=== PATIENT | female | born 1955 | race Caucasian/White ===

== ENCOUNTER 2017-04-07 06:24 | Day surgery (SDC) | payer OTHER ==
[~2017-04-07] VITALS: Ht 152.4 cm; Wt 90.3 kg
[~2017-04-07 06:24] MED LIST: AMBI12.5 PO; AMIT75TA6 PO; DEPA250T PO; MAXA10TA2 PO; SYNT25TA PO; TIZA2TAB PO
[2017-04-07] MEDS ORDERED: IOHEXOL 350 MG/ML 50 ML BTL (for Cath Lab) OTHER ONE (06:25)
[2017-04-07 06:45] VITALS: BP 121/51; PULSE 91; RESP 16; O2SAT 97
[2017-04-07] MEDS ORDERED: MONT10TA4 PO (06:54)
[2017-04-07] MEDS ORDERED: ASPI-516 CHEW (06:54)
[2017-04-07] MEDS ORDERED: ASPIRIN 81 MG CHEW TAB PO ONE (07:15)
[2017-04-07 07:17] LABS: AUTOMATED NEUTROPHIL # 3.6 TH/MM3 (1.8-7.7); BASOPHIL # 0.1 TH/MM3 (0-0.2); BASOPHIL % 1.3 % (0.0-2.0); EOSINOPHIL # 0.2 TH/MM3 (0-0.4); EOSINOPHIL % 3.2 % (0.0-4.0); HEMATOCRIT 46.1 % (35.0-46.0); HEMOGLOBIN 15.8 GM/DL (11.6-15.3); LYMPH % 38.7 % (9.0-44.0); LYMPHOCYTE # 2.8 TH/MM3 (1.0-4.8); MEAN CELL VOLUME 89.9 FL (80.0-100.0); MEAN CORPUSCULAR HEMOGLOBIN 30.9 PG (27.0-34.0); MEAN CORPUSCULAR HGB CONC 34.3 % (32.0-36.0); MEAN PLATELET VOLUME 8.5 FL (7.0-11.0); MONO % 7.7 % (0.0-8.0); MONOCYTE # 0.6 TH/MM3 (0-0.9); NEUT % 49.1 % (16.0-70.0); PLATELET COUNT 282 TH/MM3 (150-450); RED BLOOD COUNT 5.13 MIL/MM3 (4.00-5.30); RED CELL DISTRIBUTION WIDTH 13.3 % (11.6-17.2); WHITE BLOOD COUNT 7.3 TH/MM3 (4.0-11.0)
[2017-04-07 07:24] LABS: PROTHROMBIN TIME - PATIENT 9.7 SEC (9.8-11.6)
[2017-04-07 07:30] LABS: BICARBONATE 27.1 MEQ/L (21.0-32.0); CALCIUM 8.7 MG/DL (8.5-10.1); CREATININE 0.82 MG/DL (0.50-1.00)
[2017-04-07] MEDS ORDERED: HEPARIN-NS/PF INJ 1,000 ML ONE (08:05)
[2017-04-07] MEDS ORDERED: MIDAZOLAM HCL 2 MG/2 ML VIAL ONE (08:17)
--- NOTE | 2017-04-07 09:22 | CATHPROC ---
Mogreet HIS Report Study Information Study Number Admission Scheduled Start Study Start [id number] Apr 07 2017 6:24AM 04/07/2017 Apr 07 2017 7:58AM Study Type [place] Service Left/Possible PCI Cardiac Catheterization Admit Source Facility Department Other [facility] - Compliance Director Physician and Clinical Staff Initial Leoncio Parnell Key Sandercarolyn Fine RN, Wilmer Recorder Tova Hale ,RT(R) Recorder Joceline Langley,BRENT TECH2 Scrub Wallace Ta,RT(R) Procedures Performed Procedure Location (Site) Vessel Name Coronary Angiograms LCA Left Coronary Coronary Angiograms RCA Right Coronary LV Gram-hand inj. LV LV Ventricle Equipment Time Alum Plant Supervisor Description Size Mfg Part Number Used/Scraped CATHETER, FR5 SWAN JOSE ALBERTO 08:08 Zaizher.im FR 5 [id number] *[id number] Used MONITOR TRANSDUCER, TRUWAVE [id number] 08:08 RODGERS SYED * Used W/STOCKCOCK *[id number] [id number] *[id number] [id number] *[id number] 08:08 MEDLINE INDUSTRIES PACK, CCL CUSTOM * Used *[id number] 08:08 Nexstim PACER PEN, SKIN DUAL W/ RULER * Used *[id number] 08:08 Jumbas MEDICAL SHEATH, FR5.5 PRELUDE 11CM FR 5.5 Used [id number] 08:08 [employer]umbas MEDICAL WIRE, 3MMJ .035 180CM 180CM Used *[id number] 08:08 NAMIC MANIFOLD, 4 PORT * Used *[id number] 08:08 NYCOMED OMNIPAQUE, 350 MG, 150ML 150ML [id number] Used [id number] 08:08 [place]ach MEDICAL BLANKET,WARM AIR CCL * Used *[id number] 08:08 TERUMO MEDICAL SHEATH, FR4 TERUMO (10CM) FR 4 Used *[id number] History: Current Medications Medication Dosage/Unit Route Frequency Last Date/Time Taken ASA History: Allergies Allergy Reaction codeine Nausea/Vomiting History: Risk Factors Family History of Hypertension Dyslipidemia Previous PR Previous Heart Failure Premature CAD No No Yes No No Prior Valve Prior PCI Prior CABG Surgery No No No Cerebrovascular Peripheral Artery Chronic Lung On Dialysis Diabetes Disease Disease Disease No No No No No History: Stress Tests Stress or Imaging Studies Performed Yes Stress Test SPECT Stress Test SPECT Result Stress Test SPECT Ischemia Risk/Extent Yes Positive Low Stress Test CMR No Cardiac CTA Coronary Calcium Score No No History: Other Current Smoker Method Packs a Day Years Used Pack Years Yes Cigarettes 1 40 40 Labs Hgb (g/dl) Hct (%) WBC (l/cumm) Platelets (thousands) 11.60-17.00 35.00-51.00 4.00-11.00 150.00-450.00 15.8 46.1 7.3 282 Glucose (mg/dl) BUN (mg/dl) Creatinine (mg/dl) BUN:Creatinine (1:x) 74.00-106.00 7.00-18.00 0.50-1.30 10.00-20.00 92 13 0.8 16.3 Na (meq/l) K (meq/l) 136.00-145.00 3.50-5.10 142 3.7 INR (PTT:PT) 0.90-1.10 1 CPK-MB (ng/ML) 0.50-3.60 Not Drawn Medication Medication Total Dose (Bolus/Oral) Medication Total Dosage/Unit 1% XYLOCAINE 20 mL VERSED 1 mg Medications (Bolus/Oral) Medication Time Given Dosage/Unit Administered By Reason VERSED 04/07/2017 8:45:00 AM 1 mg Wilmer Fine RN 1 mg VERSED given in lab by Wilmer Fine RN in Left Antecubital via Peripheral IV. Ordered by Leoncio Edmonds. 1% XYLOCAINE 04/07/2017 8:46:44 AM 20 mL Leoncio Moreno 20 mL 1% XYLOCAINE given in lab by Leoncio Moreno in Right Groin via Subcutaneous. Ordered by Leoncio Chiu. Medication (Drip) Medication Time Given Dosage/Unit Concentration/Unit Diluent (ml) Solution IV Solutions 04/07/2017 8:09:45 AM 0 mL (IV) 500 NaCl .9 Patient arrived on IV Solutions in Left Antecubital via Peripheral IV. Pump/Drip Flow = 20 ml/hr usin g NaCl .9. Initial Case Assessment Cardiovascular HR Rhythm NIBP Chest Pain 72 sr 107/69 0 Edema Present Skin color Skin None Normal Warm Dry Circulatory - Right Pulses Dorsalis Pedis Femoral 1 1 Scale (0,1,2,3,4,d) Circulatory - Left Pulses Dorsalis Pedis Femoral 1 1 Scale (0,1,2,3,4,d) Neurological State Oriented to time-place- Alert Moves all extremities person Respiration - General Respiration Rate SpO2 (%) (B/min) 20 98 Final Case Assessment Cardiovascular HR Rhythm NIBP Chest Pain 72 sr 107/69 0 Edema Present Skin color Skin None Normal Warm Dry Circulatory - Right Pulses Dorsalis Pedis Femoral 1 1 Scale (0,1,2,3,4,d) Circulatory - Left Pulses Dorsalis Pedis Femoral 1 1 Scale (0,1,2,3,4,d) Neurological State Oriented to time-place- Alert Moves all extremities person Respiration - General Respiration Rate SpO2 (%) (B/min) 20 98 Chronological Log Time Study Chronological Log 8:04:35 Patient arrived via Bed. 8:04:36 Patient Name, D.O.B, / Armband Verified By R.N. 8:04:37 Consent signed by the physician and the patient and verified by the Compliance Director staff. 8:04:38 Pre-op and post- op instructions given; patient acknowledges understanding of instructions. 8:04:43 Verbal Stimulation=2 Physical Stimulation=2 Airway=2 Respiration=2 TOTAL=8. (0=absent, 1=li mited, 2=present) Vitals capture started with the following parameters, Patient=Adult, Interval=5 min, Initial Pr hfvokb=035 mmHg, 8:08:50 Deflation Rate=5 mmHg, Cuff placed on Left Arm 8:09:09 Patient has been NPO for More than 6Hrs. 8:09:11 Skin Breakdown-none per patient 8:09:25 [place] Prominences Protected 8:09:28 A # 20 IV was noted in the Antecubital (left). Grade = patent 8:09:30 HR=67 bpm, SEXF=395/69 mmhg, SpO2=98.0 %, Resp=8 B/min, Pain=0, David=10, Mcclellan=2 8:09:45 Patient arrived on IV Solutions in Left Antecubital via Peripheral IV. Pump/Drip Flow = 20 ml/hr using NaCl .9. 8:10:37 Reference ECG taken 8:11:10 History and physical on the chart or being dictated. Assessment: Initial Case, HR=72 BPM, Rhythm=sr, OJAK=204/69 mmhg, Chest Pain=0, Edema=None, [place] r=Normal, Skin = Warm, Dry Right Pulses: Carmine Ped=1, Femoral=1 8:11:11 Left Pulses: Carmine Ped=1, Femoral=1 Neurological: State=Alert, Ox3, LEONG Respiration: Resp=20 B/min, SpO2=98 % 8:15:49 Vitals capture stopped. Vitals capture started with the following parameters, Patient=Adult, Interval=5 min, Initial Pre sehbe=515 mmHg, 8:15:56 Deflation Rate=5 mmHg, Cuff placed on Left Arm 8:16:46 HR=69 bpm, DDRB=400/57 mmhg, EcU6=494.0 %, Resp=15 B/min, Pain=0, David=10, Mcclellan=2 8:17:47 Bilateral groins prepped with 2% chlorhexidine, and draped after a 3 minute waiting time. 8:21:33 HR=67 bpm, WPLY=530/57 mmhg, MxC6=767.0 %, Resp=20 B/min, Pain=0, David=10, Mcclellan=2 8:21:42 Pressure channel 1 zeroed. 8:27:07 HR=65 bpm, SKWW=448/59 mmhg, SpO2=98.0 %, Resp=22 B/min, Pain=0, David=10, Mcclellan=2 8:28:39 MD paged 8:29:12 MD responded 8:31:37 HR=65 bpm, EYNR=951/60 mmhg, SpO2=98.0 %, Resp=23 B/min, Pain=0, David=10, Mcclellan=2 8:37:09 HR=75 bpm, NIBP=80/59 mmhg, SpO2=97.0 %, Resp=32 B/min, Pain=0, David=10, Mcclellan=2 8:41:12 MD arrived. 8:42:47 HR=66 bpm, MBLG=564/57 mmhg, SpO2=98.0 %, Resp=23 B/min, Pain=0, David=10, Mcclellan=2 8:45:00 1 mg VERSED given in lab by Wilmer Fine RN in Left Antecubital via Peripheral IV. Ordered Leoncio Payton. Time Out. Correct patient, correct procedure, correct physician, power injector not loaded with contrast with surgical 8:46:14 team present. Time Out Concurred by MD and individual staff in procedure. 8:46:36 HR=71 bpm, GGKO=738/59 mmhg, SpO2=97.0 %, Resp=23 B/min, Pain=0, David=10, Mcclellan=2 8:46:41 Case Start 20 mL 1% XYLOCAINE given in lab by Josh, Leoncio in Right Groin via Subcutaneous. Ordered by Josh, 8:46:44 Leoncio. 8:48:10 Access site was Right Femoral Vein. 8:48:26 A SHEATH, FR5.5 PRELUDE 11CM FR 5.5 was advanced into the Fem Vein (right) using the Percuta neous technique. 8:49:20 Access site was Right Femoral Artery. 8:49:25 A SHEATH, FR4 TERUMO (10CM) FR 4 was advanced into the Fem Art (right) using the Percutaneou s technique. 8:50:14 Saturation: Site=Ao (Aorta) , O2=97.3 %, Hgb=15.8 gm/dl, Condition=Condition 1. Used in calc ulation. 8:52:20 HR=68 bpm, IGBO=382/58 mmhg, SpO2=97.0 %, Resp=19 B/min, Pain=0, David=10, Mcclellan=2 Recorded Pressure: PCW, HR=72, Condition=Condition 1 8:52:31 (Pulmonary Capillary Wedge) PCW 1814/12 Recorded Pressure: MPA, HR=70, Condition=Condition 1 8:52:46 (Main Pulmonary Artery) MPA 8:53:26 Saturation: Site=PA (Pulmonary Artery) , O2=79 %, Hgb=15.8 gm/dl, Condition=Condition 1. Use d in calculation. Recorded Pressure: RV, HR=69, Condition=Condition 1 8:54:00 (Right Ventricle) RV 344 Recorded Pressure: RA, HR=67, Condition=Condition 1 8:54:20 (Right Atrium) RA 8:54:36 Saturation: Site=RA (Right Atrium) , O2=79.9 %, Hgb=15.8 gm/dl, Condition=Condition 1. Used in calculation. 8:56:08 [place] Jose Alberto Catheter Removed A JR 4.0 INFINITI CATHETER FR 4 was advanced over a wire. OMNIPAQUE, 350 MG, 150ML 150ML was use d for 8:56:12 injections. 8:56:30 HR=60 bpm, CTAQ=035/65 mmhg, SpO2=97.0 %, Resp=17 B/min, Pain=0, David=10, Mcclellan=2 Recorded Pressure: LV, HR=66, Condition=Condition 1 8:56:49 (Left Ventricle) LV 127/12/14 8:56:56 The LV was manually injected with 10 cc's and visualized. OMNIPAQUE, 350 MG, 150ML 150ML us ed. Recorded Pressure: LV, Ao, HR=78, Condition=Condition 1 8:57:22 (Left Ventricle) LV 114/8/17, (Aorta) Ao 118/53/79 8:58:30 The RCA was injected and visualized at various angles. OMNIPAQUE, 350 MG, 150ML 150ML used . 8:58:43 Catheter was removed A JL 4.0 INFINITI CATHETER FR 4 was advanced over a wire. OMNIPAQUE, 350 MG, 150ML 150ML was us ed for 8:58:49 injections. 8:59:45 The LCA was injected and visualized at various angles. OMNIPAQUE, 350 MG, 150ML 150ML used . 9:00:53 Catheter was removed 9:01:32 Case End 9:01:35 HR=77 bpm, URHL=573/62 mmhg, SpO2=97.0 %, Resp=33 B/min, Pain=0, David=10, Mcclellan=2 Assessment: Final Case, HR=72 BPM, Rhythm=sr, VTNY=507/69 mmhg, Chest Pain=0, Edema=None, Color =Normal, Skin = Warm, Dry Right Pulses: Carmine Ped=1, Femoral=1 9:01:49 Left Pulses: Carmine Ped=1, Femoral=1 Neurological: State=Alert, Ox3, LEONG Respiration: Resp=20 B/min, SpO2=98 % 9:01:52 Catheter(s) removed without difficulty 9:02:02 Sheath(s) left in place, will be removed in Holding Area 9:02:06 No case complications noted. 9:02:07 Sterile dressing applied to site 9:02:17 Cine recording checked. 9:02:19 Bedside Report will be given. 9:02:23 Contrast Scanned 9:02:35 A Left and Right Heart Cath was performed. 9:06:40 LKOJ=847/56 mmhg, SpO2=96.0 %, Pain=0, David=10, Mcclellan=2 9:08:22 Patient moved to stretcher 9:08:29 Vitals capture stopped. 9:09:00 Patient transported to DOCU End Study - Contrast Media Used In Study Contrast Total Opened (mL) Total Used (mL) Total Wasted (mL) Omnipaque 30 30 0 End Study - Maximum Contrast Load Max Contrast Load (mL) 564.5 End Study - Radiation Exposure Fluoro Time (minutes) 2.3 End Study - Patient Disposition Complications Transferred To Interventional Outcome No Telemetry Bed No attempt made
[2017-04-07] MEDS ORDERED: MISC INFORMATION XX ONE (09:30)
[2017-04-07] MEDS ORDERED: SODIUM CHLORIDE 0.9% FLUSH 10 ML FLUSH IV FLUSH PRN (09:30)
[2017-04-07] MEDS ORDERED: BACITRACIN OINT 0.9 GM PKT TOP ONE (09:30)
--- NOTE | 2017-04-07 10:50 | EKG ---
Date Performed: 04/07/2017 Time Performed: 07:02:48 PTAGE: 61 years EKG: Sinus rhythm . Inferior/lateral ST/T wave changes are nonspecific Low QRS voltages in precordial leads Borderline ECG PREVIOUS TRACING : 02/28/2005 13.35 Compared to previous tracing, inferior and lateral ST/T kelsea nges have improved. DOCTOR: Roberto Salamanca Interpretating Date/Time 04/07/2017 10:49:14
[2017-04-07 11:04] LABS: ALBUMIN 3.9 GM/DL (3.4-5.0); DIRECT BILIRUBIN ADULT 0.2 MG/DL (0.0-0.2)
[2017-04-07 11:05] LABS: INDIRECT BILIRUBIN 0.5 MG/DL (0.0-0.8); TOTAL BILIRUBIN ADULT 0.7 MG/DL (0.2-1.0); TOTAL PROTEIN 7.7 GM/DL (6.4-8.2)
[2017-04-07 11:15] LABS: CHOLESTEROL/ HDL RATIO 2.65 RATIO; HDL CHOLESTEROL 65.2 MG/DL (40.0-60.0)
[2017-04-07] MEDS ORDERED: SODIUM CHLORIDE 0.9% FLUSH 10 ML FLUSH IV FLUSH SCH (21:00)
--- NOTE | 2017-04-10 09:28 | MA ---
cc: BENITA ALAN M.D. DATE 04/07/2017 PROCEDURE PERFORMED Right heart catheterization, left heart catheterization, left ventriculography, coronary angiography. INDICATIONS 1. Unstable angina. 2. Dyspnea on exertion. 3. New onset cardiac symptom of moderate chest pain described as tightness, associated with dyspnea at rest, near-syncope. 4. [place] Cardiovascular Society Class IV angina. 5. [place] Heart Association Class III congestive heart failure and coronary artery disease. PROCEDURE The patient was brought to the cardiac catheterization laboratory, prepped and draped in the usual sterile fashion. 10 cc of 1% lidocaine was used to locally anesthetize the right common femoral artery. A 4-Sammarinese sheath was subsequently placed in the right common femoral artery. A 5-Sammarinese sheath was placed in the right common femoral vein. Right heart catheterization was performed first with following findings: Pulmonary capillary wedge pressure was 18/14-12. PA pressure was 32/10-21. RV pressure 34/1-4. RA pressure 10/4-4. The cardiac output by Sherrill is 5.9 liters per minute. Cardiac index by Sherrill is 3.2 liters per meter2/minute. SVR by Sherrill is 1014.8 dynes. On room air, the femoral artery sat was 97.3%. The PA sat is 79.0%. The RA sat is 79.9%. Left heart catheterization was then performed with a 4-Sammarinese JR-4 and JL-4 catheter with the following findings - LV pressure is 120/12-14. Ejection fraction is 60%. CORONARY ARTERIES The right coronary artery is dominant. It is fibrocalcific in its proximal to mid-segment with mild to moderate diffuse disease in the proximal to mid-segment up to 30-40% angiographically. The distal right coronary artery has mild disease up to 10-20% angiographically. The right PDA has a [id number] 50% to 60% stenosis. The left main coronary artery is fibrocalcific fluoroscopically. No significant disease angiographically. The left circumflex vessel has no significant disease angiographically. The first obtuse marginal vessel has a high takeoff; it is a small to medium-sized vessel 2.25 mm in diameter at its reference vessel segment with a proximal 20-30% stenosis. The second obtuse marginal vessel is a medium to large-sized vessel, 3.0 reference vessel diameter with mild diffuse disease in the proximal mid-segment up to 10-20% angiographically. The third obtuse marginal vessel is a small vessel, 1-mm in diameter; no significant obstructive disease. There is a distal posterolateral artery which is a small to medium-sized vessel with no significant obstructive disease. The left circumflex vessel terminates into a small posterolateral artery that is 0.5 mm in diameter with no significant disease angiographically. The LAD is transapical and has mild diffuse disease in the proximal mid-segment up to 10-20% angiographically. CONCLUSIONS 1. Angiographically mild to moderate three-vessel coronary artery disease in a right-dominant system as detailed above. 2. Normal LV systolic function, ejection fraction 60%. 3. Mildly elevated right heart catheterization, pressures as detailed above. RECOMMENDATIONS 1. I have advised the patient start aspirin 81 mg a day. 2. We will check fasting lipids and CKs here in the hospital and treat lipids per CV guidelines. 3. The patient has been instructed by myself personally to follow up with me on Monday, April 10, 2017. NOTE Regarding that right PDA lesion, the patient had a low risk stress test with no reversibility in the inferior wall noted. I think this lesion could be treated medically. If the patient's symptoms do not improve or progress, could consider FFR of this lesion and stenting if hemodynamically significant. MD PENNIE Roberts/STAN /9:11 AM /9:02 AM
== END 2017-04-07 12:01 | disposition home or self-care (01) ==
LOC: HDOC 06:24 → HDIC 06:25 → HDOC 12:01
PROVIDERS: ATTEND Internal Medicine Interventional Cardiology
DX: I25.110 Atherosclerotic heart disease of native coronary artery with unstable angina pectoris (principal); I50.9 Heart failure, unspecified; R55 Syncope and collapse; R06.00 Dyspnea, unspecified; I80.9 Phlebitis and thrombophlebitis of unspecified site; E78.00 Pure hypercholesterolemia, unspecified; Z01.818 Encounter for other preprocedural examination
CPT/HCPCS: 80048; 80061; 80076; 82550; 85025; 85610; 93005; 93460; 99152; C1769; C1893; J1644; J2250; Q9967